=== PATIENT | male | born 1975 | race Caucasian/White ===

== ENCOUNTER 2017-09-23 16:09 | Inpatient (IN) | payer BC ==
[~2017-09-23] VITALS: Ht 177.8 cm; Wt 83.8 kg
[2017-09-23 16:43] LABS: HEMATOCRIT 40.4 % (38.0-50.0); HEMOGLOBIN 14.6 G/DL (12.5-16.6); MCH 32.3 PG (29.0-34.0); MCHC 36.1 G/DL (30.0-36.0); MCV 89.4 FL (86-99); PLATELET COUNT 116 K/uL (156-360); RBC DIS.WIDTH-CV 12.5 % (11.8-14.6); RBC DIS.WIDTH-SD 41.2 % (39-53); RED BLOOD COUNT 4.52 M/uL (4.00-5.50); WHITE BLOOD COUNT 6.2 K/uL (4.1-10.2)
[2017-09-23 16:58] LABS: CHLORIDE 102 mEq/L (99-109); POTASSIUM 3.8 mEq/L (3.7-5.4); SODIUM 136 mEq/L (136-147)
[2017-09-23 17:00] LABS: GLUCOSE 115 mg/dL (70-99)
[2017-09-23 17:04] LABS: CREATININE 1.3 mg/dL (0.6-1.3); GFR ESTIMATE (CALCULATED) > 59 mL/min/ (58.99-99999)
[2017-09-23 17:05] LABS: UREA NITROGEN (BUN) 19 mg/dL (9-23)
[2017-09-23 17:06] LABS: TROP-I INTERPRETATION POSITIVE
[2017-09-23 17:07] LABS: TROPONIN-I 2.99 ng/mL (0.0-0.30)
[2017-09-23 17:59] LABS: PTT 23.6 SEC (25-37)
[2017-09-23] MEDS ORDERED: LISINOPRIL-HCT1 EAC3 PO (20:06)
[2017-09-23] MEDS ORDERED: ADVIL,NUPRIN,M200 MG PO (20:06)
[2017-09-23] MEDS ORDERED: STELARA90 MG/1 ML SC (20:07)
[2017-09-23 22:05] LABS: TROP-I INTERPRETATION POSITIVE
[2017-09-23 22:08] LABS: TROPONIN-I 37.96 ng/mL (0.0-0.30)
[2017-09-23 23:47] VITALS: BP 124/87
[2017-09-24 00:56] LABS: PTT 61.7 SEC (25-37)
[2017-09-24 04:44] VITALS: BP 103/59
[2017-09-24 06:22] LABS: HEMATOCRIT 40.1 % (38.0-50.0); HEMOGLOBIN 14.4 G/DL (12.5-16.6); MCH 32.2 PG (29.0-34.0); MCHC 35.9 G/DL (30.0-36.0); MCV 89.7 FL (86-99); PLATELET COUNT 111 K/uL (156-360); RBC DIS.WIDTH-CV 12.8 % (11.8-14.6); RBC DIS.WIDTH-SD 42.2 % (39-53); RED BLOOD COUNT 4.47 M/uL (4.00-5.50); WHITE BLOOD COUNT 5.8 K/uL (4.1-10.2)
[2017-09-24 06:34] LABS: TROP-I INTERPRETATION POSITIVE
[2017-09-24 06:44] LABS: TROPONIN-I 32.75 ng/mL (0.0-0.30)
[2017-09-24 06:45] LABS: CHLORIDE 102 MEQ/L (99-109); GFR ESTIMATE (CALCULATED) > 59 mL/min/ (58.99-99999); GLUCOSE 96 mg/dL (70-99); POTASSIUM 3.7 MEQ/L (3.7-5.4); SODIUM 139 MEQ/L (136-147); UREA NITROGEN (BUN) 14 mg/dL (9-23)
[2017-09-24 09:19] VITALS: BP 131/72
[2017-09-24 11:47] VITALS: BP 128/85
[2017-09-24 16:32] VITALS: BP 125/80
[2017-09-24 19:43] VITALS: BP 121/80
[2017-09-24 23:25] VITALS: BP 128/85
[2017-09-25 03:39] VITALS: BP 116/80
[2017-09-25 07:54] VITALS: BP 135/90
[2017-09-25 09:45] LABS: CHLORIDE 106 MEQ/L (99-109); GFR ESTIMATE (CALCULATED) > 59 mL/min/ (58.99-99999); GLUCOSE 101 mg/dL (70-99); POTASSIUM 4.1 MEQ/L (3.7-5.4); SODIUM 140 MEQ/L (136-147); UREA NITROGEN (BUN) 11 mg/dL (9-23)
[2017-09-25] MEDS ORDERED: METOPROLOL TART25 MG PO (10:15)
[2017-09-25] MEDS ORDERED: ASPIR-LOW81 MG PO (10:15)
[2017-09-25] MEDS ORDERED: CLOPIDOGREL75 MG PO (10:15)
[2017-09-25] MEDS ORDERED: ATORVASTATIN CA40 MG PO (10:15)
[2017-09-25 11:24] VITALS: BP 130/87
== END 2017-09-25 12:42 | disposition home or self-care (01) | DRG 281 ==
LOC: EME 16:09 → EDOF 21:39 → 4EAST 21:39 → ENRESERV 21:40 → 4EAST 22:58
PROVIDERS: Emergency Medicine; Hospitalist; Internal Medicine Cardiovascular Disease
PROC: B2151ZZ Fluoroscopy of Left Heart using Low Osmolar Contrast (ICD-10-PCS; principal; 2017-09-24)
PROC: B2111ZZ Fluoroscopy of Multiple Coronary Arteries using Low Osmolar Contrast (ICD-10-PCS; principal; 2017-09-24)
PROC: 4A023N7 Measurement of Cardiac Sampling and Pressure, Left Heart, Percutaneous Approach (ICD-10-PCS; principal; 2017-09-24)
DX: I21.4 Non-ST elevation (NSTEMI) myocardial infarction (principal); I47.2 Ventricular tachycardia; I25.10 Atherosclerotic heart disease of native coronary artery without angina pectoris; I10 Essential (primary) hypertension; L40.50 Arthropathic psoriasis, unspecified; E78.5 Hyperlipidemia, unspecified; F17.210 Nicotine dependence, cigarettes, uncomplicated
CPT/HCPCS: 71046; 80048; 84484; 85027; 85610; 85730; 93005; 99281; 99285; C1769; C1887; J1644; J2250; J3010; J7040

== ENCOUNTER 2017-10-06 18:24 | Observation (INO) | payer BC ==
[~2017-10-06] VITALS: Ht 177.8 cm; Wt 85.3 kg
[~2017-10-06 18:24] MED LIST: ADVIL,NUPRIN,M200 MG PO; ASPIR-LOW81 MG PO; ATORVASTATIN CA40 MG PO; CLOPIDOGREL75 MG PO; LISINOPRIL20 MG PO; METOPROLOL TART25 MG PO; STELARA90 MG/1 ML SC
[2017-10-06 18:42] LABS: HEMATOCRIT 38.3 % (38.0-50.0); HEMOGLOBIN 13.9 G/DL (12.5-16.6); MCH 32.6 PG (29.0-34.0); MCHC 36.3 G/DL (30.0-36.0); MCV 89.7 FL (86-99); PLATELET COUNT 126 K/uL (156-360); RBC DIS.WIDTH-CV 12.2 % (11.8-14.6); RBC DIS.WIDTH-SD 39.7 % (39-53); RED BLOOD COUNT 4.27 M/uL (4.00-5.50); WHITE BLOOD COUNT 6.4 K/uL (4.1-10.2)
[2017-10-06 18:53] LABS: CHLORIDE 103 mEq/L (99-109); POTASSIUM 3.7 mEq/L (3.7-5.4); SODIUM 138 mEq/L (136-147)
[2017-10-06 18:55] LABS: GLUCOSE 130 mg/dL (70-99)
[2017-10-06 18:59] LABS: CREATININE 1.2 mg/dL (0.6-1.3); GFR ESTIMATE (CALCULATED) > 59 mL/min/ (58.99-99999)
[2017-10-06 19:00] LABS: UREA NITROGEN (BUN) 16 mg/dL (9-23)
[2017-10-06 19:07] LABS: TROP-I INTERPRETATION NEGATIVE; TROPONIN-I 0.05 ng/mL (0.0-0.30)
[2017-10-06 21:43] VITALS: BP 128/95
[2017-10-07 01:14] LABS: TROP-I INTERPRETATION POSITIVE
[2017-10-07 01:15] LABS: TROPONIN-I 1.34 ng/mL (0.0-0.30)
[2017-10-07 03:53] VITALS: BP 142/81
[2017-10-07 07:59] LABS: TROPONIN-I 0.94 ng/mL (0.0-0.30)
[2017-10-07 08:00] LABS: TROP-I INTERPRETATION POSITIVE
[2017-10-07 08:55] VITALS: BP 127/86
[2017-10-07 09:59] LABS: HDL CHOLESTEROL 34 MG/DL (Desirable>=40); LDL CHOLESTEROL 39 mg/dL (Desirable<100); NON-HDL CHOLESTEROL 62 mg/dL (Desirable<160); TOTAL CHOLESTEROL 96 mg/dL (Desirable<200); TRIGLYCERIDES 113 MG/DL (Normal: <150)
[2017-10-07 12:21] VITALS: BP 122/81
== END 2017-10-07 16:44 | disposition home or self-care (01) ==
LOC: EME 18:24 → 4SOUTH 20:53 → EDOF 20:53 → ENRESERV 20:55 → 4SOUTH 21:37
PROVIDERS: Physician Assistant
DX: R07.9 Chest pain, unspecified (principal); R79.89 Other specified abnormal findings of blood chemistry; R94.31 Abnormal electrocardiogram [ECG] [EKG]; I21.4 Non-ST elevation (NSTEMI) myocardial infarction; E78.5 Hyperlipidemia, unspecified; I10 Essential (primary) hypertension; F17.210 Nicotine dependence, cigarettes, uncomplicated; L40.50 Arthropathic psoriasis, unspecified; Z83.3 Family history of diabetes mellitus; Z79.02 Long term (current) use of antithrombotics/antiplatelets; Z79.82 Long term (current) use of aspirin
CPT/HCPCS: 71046; 80048; 80061; 80306 90; 84484; 85027; 85730; 93005; 99281; 99285; G0378; J1644